=== PATIENT | female | born 1995 | race African-American/Black ===

== ENCOUNTER 2022-10-03 20:55 | Emergency (ER) | payer BC, SELFPAY ==
[2022-10-03 20:59] VITALS: BP 121/83; PULSE 86; RESP 16; TEMP 36.8; O2SAT 99; BMI 29.1
[2022-10-03 21:18] LABS: MANUAL DIFF FLAG NO
[2022-10-03 21:31] LABS: Basophils Percent Auto 0.5 % (0-2); Eosinophils Absolute Auto 0.1 X10*3/uL (0.0-0.4); Eosinophils Percent Auto 2.1 % (0-4); Hematocrit 41.2 % (37.0-47.0); Hemoglobin 13.5 g/dl (12.0-16.0); Imm Gran Abs Auto 0.02 X10*3/uL (0.00-0.03); Imm Gran Pct Auto 0.3 % (0.0-0.4); Lymphocytes Absolute Auto 3.1 X10*3/uL (1.2-4.9); Lymphocytes Percent Auto 49.3 % (20-40); Mean Corpuscular HGB Conc 32.8 g/dl (31.0-35.0); Mean Corpuscular Hemoglobin 27.1 pg (27.0-33.0); Mean Corpuscular Volume 82.6 fL (80.0-98.0); Mean Platelet Volume 10.3 fL (9.4-12.3); Monocytes Absolute Auto 0.5 X10*3/uL (0.1-1.2); Monocytes Percent Auto 7.5 % (2-11); Neutrophils Absolute Auto 2.5 x10*3/uL (2.0-8.3); Neutrophils Percent Auto 40.3 % (45-73); Platelet Count 296 X10*3/uL (160-400); Red Blood Count 4.99 X10*6/uL (4.20-5.50); Red Cell Distribution Width 13.5 % (11.0-16.0); White Blood Count 6.2 X10*3/uL (4.8-10.8)
[2022-10-03 21:33] LABS: Anion Gap 12 (12-20); Blood Urea Nitrogen 9 mg/dL (9-16); Calcium 9.1 mg/dL (8.4-10.2); Carbon Dioxide 24 mmol/L (22-29); Chloride 106 mmol/L (96-108); Creatinine Clr Calc Pharmacy 71.6; Estimated Glomerular Filt Rate 52; Glucose Random 84 mg/dL (60-115); Potassium 4.3 mmol/L (3.3-5.1); Sodium 138 mmol/L (135-145)
--- NOTE | 2022-10-04 00:33 | ED_ITS ---
HPI - Abdominal Pain General Chief Complaint: Abdominal Pain Stated Complaint: diarrhea, blood in stool, abd pain Time Seen by Provider: 10/04/22 00:25 Source: patient Mode of arrival: ambulatory Limitations: no limitations History of Present Illness HPI narrative: Patient was healthy been having diarrhea since 08/19, 5-6 times a day no fever, no chills no recent travel so antibiotic use since sometime patient has small amount of bright blood along with mucus. Diffuse abdominal cramping. Other family member were sick initially but all of them have improved except her Related Data Previous Rx's Medication Instructions Recorded ciprofloxacin HCl 500 mg tablet 500 mg PO BID #14 tabs 10/04/22 (Cipro) loperamide 2 mg tablet (Imodium 2 mg PO Q6H PRN loose stool #14 10/04/22 A-D) tabs metronidazole 500 mg tablet 500 mg PO Q8H 7 days #21 tabs 10/04/22 Allergies Allergy/AdvReac Type Severity Reaction Status Date / Time peanut Allergy Anaphylaxis Verified 10/03/22 21:03 Review of Systems Review of Systems Yes all other systems are reviewed and are negative [facility] Social History Social History Smoked in Last 30 Days: No Use of substances other than those prescribed or required for medical reasons: No Advance Directives: No Advance Directives Information Provided: Yes Physical Exam ED Vital Signs: Vital Signs - 24 hr 10/03/22 20:59 Temperature 98.2 F Pulse Rate 86 Respiratory Rate 16 Blood Pressure 121/83 Pulse Oximetry 99 Oxygen Delivery Method Room Air BMI result Body Mass Index 29.1 Appearance: Alert. Oriented X3. No acute distress. Eyes: No pallor or icterus ENT: Pharynx normal. Oral Mucosa moist Neck: Normal inspection. Neck supple. CVS: Normal heart rate and rhythm. Pulses normal. Respiratory: No respiratory distress. Equal air entry bilateral, no wheezing/rales/rhonchi Abdomen: Soft and nontender. Bowel sounds are present, no mass palpable, Skin: Skin warm and dry. Normal skin color. Normal skin turgor. Extremities: No lower extremity edema. No calf tenderness Neuro: Oriented X 3. No motor deficit. Medical Decision Making Medical Decision Making MDM Narrative: Patient chronic gastroenteritis etiology not very clear will give a course of Flagyl and Cipro. Lab Data MDM Lab Attestation statement: I reviewed the patient's lab results. 10/03/22 21:15 10/03/22 21:15 Labs: Lab Results 10/03/22 10/03/22 Range/Units 21:15 21:15 WBC 6.2 (4.8-10.8) X10*3/uL RBC 4.99 (4.20-5.50) X10*6/uL Hgb 13.5 (12.0-16.0) g/dl Hct 41.2 (37.0-47.0) % MCV 82.6 (80.0-98.0) fL MCH 27.1 (27.0-33.0) pg MCHC 32.8 (31.0-35.0) g/dl RDW 13.5 (11.0-16.0) % Plt Count 296 (160-400) X10*3/uL MPV 10.3 (9.4-12.3) fL Immature Gran % (Auto) 0.3 (0.0-0.4) % Neut % (Auto) 40.3 L (45-73) % Lymph % (Auto) 49.3 H (20-40) % [place] % (Auto) 7.5 (2-11) % Eos % (Auto) 2.1 (0-4) % Baso % (Auto) 0.5 (0-2) % Lymph # (Auto) 3.1 (1.2-4.9) X10*3/uL [place] # (Auto) 0.5 (0.1-1.2) X10*3/uL Eos # (Auto) 0.1 (0.0-0.4) X10*3/uL Baso # (Auto) 0.0 (0.0-0.2) X10*3/uL Abs Immat Gran (auto) 0.02 (0.00-0.03) X10*3/uL Absolute Neuts (auto) 2.5 (2.0-8.3) x10*3/uL Absolute Nucleated RBC 0.000 (0.0-0.012) X10*3/uL Nucleated RBC % (auto) 0.0 (0.0-0.2) /100WBC Sodium 138 (135-145) mmol/L Potassium 4.3 (3.3-5.1) mmol/L Chloride 106 (96-108) mmol/L Carbon Dioxide 24 (22-29) mmol/L Anion Gap 12 (12-20) BUN 9 (9-16) mg/dL Creatinine 1.25 (0.5-1.4) mg/dL Estim Creat Clear Calc 71.6 Estimated GFR 52 Random Glucose 84 (60-115) mg/dL Calcium 9.1 (8.4-10.2) mg/dL Discharge Plan Discharge Clinical Impression: Gastroenteritis Patient Disposition: Home, Self-Care Instructions: Gastroenteritis (ED) Additional Instructions: Drink plenty of fluids Take Imodium 1 tablet 2- 3 times a day for severe diarrhea Antibiotic as prescribed Follow with PCP as needed Prescriptions: New loperamide [Imodium A-D] 2 mg tablet 2 mg PO Q6H PRN (Reason: loose stool) Qty: 14 0RF metronidazole 500 mg tablet 500 mg PO Q8H 7 Days Qty: 21 0RF ciprofloxacin HCl [Cipro] 500 mg tablet 500 mg PO BID Qty: 14 0RF
[2022-10-04 00:50] VITALS: BP 126/84; PULSE 81; RESP 16; TEMP 36.2; O2SAT 96
[2022-10-04] MEDS: metroNIDAZOLE 500 MG TABLET PO (01:03)
[2022-10-04] MEDS: levoFLOXacin 500 MG TABLET PO (01:03)
[2022-10-04] MEDS: Loperamide HCl 2 MG CAPSULE PO (01:04)
--- NOTE | 2022-10-04 02:54 | PC.NURSE ---
pt reports feeling a bit better, reviewed medication and discharge instructions. Pt verbalized understanding. No sign of distress at this charge.
== END 2022-10-04 02:55 | disposition home or self-care (01) ==
PROVIDERS: Emergency Provider Internal Medicine
DX: K52.9 Noninfective gastroenteritis and colitis, unspecified (principal); R10.9 Unspecified abdominal pain
CPT/HCPCS: 36415; 80048; 85025; 99283; 99284

== ENCOUNTER 2023-04-12 16:08 | Emergency (ER) | payer BC, SELFPAY ==
--- NOTE | ~2023-04-12 | XR_ITS ---
EXAMINATION: XR CHEST CLINICAL INFORMATION: Cough. Shortness of breath. COMPARISON: None available. TECHNIQUE: 2 views of the chest were obtained. FINDINGS: The cardiomediastinal silhouette is normal. There is no focal lung consolidation or pleural effusion. There is mild curvature of the thoracic spine convex to the left. The soft tissues are unremarkable. XR/XR chest 2V IMPRESSION: No active cardiopulmonary disease.
[2023-04-12 16:22] VITALS: BP 133/92; PULSE 92; RESP 18; TEMP 37.1; O2SAT 98; BMI 28.0
--- NOTE | 2023-04-12 16:49 | ED.ASTHMA ---
HPI - Asthma General Chief Complaint: Asthma Stated Complaint: diff. breathing,hx asthma Time Seen by Provider: 04/12/23 16:24 Source: patient, EMS and RN notes reviewed Mode of arrival: EMS Limitations: no limitations History of Present Illness HPI Narrative: Patient is a 27-year-old female with history of asthma presenting to the emergency department with complaint of cough and shortness of breath since Sunday. Patient reports that she has been attempting to have her Symbicort and ProAir inhalers refilled since that time but her PCP office has not sent new prescriptions to the pharmacy. She denies fevers. Denies history of previous intubations. Denies nasal congestion, sore throat, ear pain. Denies chest pain. Reports that it is she was managing her symptoms with her albuterol inhaler after her Symbicort ran out but has since run out of the ProAir as well. Patient arrived on O2 via nasal cannula from EMS. complaint: wheezing Onset (ago): day(s) Severity: severe and similar to prior Context: ran out of meds Associated symptoms: dry cough Asthma History: childhood onset Treatments Prior to Arrival: inhaled bronchodilator, inhaled steroid and oxygen Related Data Previous Rx's Medication Instructions Recorded ciprofloxacin HCl 500 mg tablet 500 mg PO BID #14 tabs 10/04/22 (Cipro) loperamide 2 mg tablet (Imodium 2 mg PO Q6H PRN loose stool #14 10/04/22 A-D) tabs metronidazole 500 mg tablet 500 mg PO Q8H 7 days #21 tabs 10/04/22 albuterol sulfate 90 mcg/actuation 2 puff inhalation Q4-6H PRN 04/12/23 aerosol inhaler shortness of breath or wheezing #6.7 grams budesonide-formoterol HFA 80 2 puff inhalation BID #10.2 grams 04/12/23 mcg-4.5 mcg/actuation aerosol inhaler (Symbicort) Allergies Allergy/AdvReac Type Severity Reaction Status Date / Time peanut Allergy Anaphylaxis Verified 10/03/22 21:03 Review of Systems Review of Systems: As per HPI. Yes all other systems are reviewed and are negative Constitutional: Constitutional: Reports as per HPI PMFSH Social History Social History Advance Directives: No Advance Directives Information Provided: Yes Physical Exam Vital Signs: Vital Signs: Last Vital Signs Temp 98.7 F 04/12/23 16:22 Pulse 92 04/12/23 16:22 Resp 18 04/12/23 16:22 BP 133/92 H 04/12/23 16:22 Pulse Ox 98 04/12/23 16:22 O2 Del Method Nasal Cannula 04/12/23 16:22 Oxygen Flow Rate 2 04/12/23 16:22 BMI result Body Mass Index 28.0 Vital signs have been reviewed and appear to be correct. Blood pressure mildly elevated. Heart rate normal. Respiratory rate normal. Temperature normal. Oxygen saturation normal on O2 @ 2lpm via NC. Const: General: cooperative, healthy appearing and no acute distress Orientation/consciousness: oriented to person, oriented to place, oriented to time and patient oriented x3 Limitations: no limitations HEENT: Head: Yes normocephalic and Yes atraumatic Ears: external ears normal General nose exam: Normal external nose present Face and sinus: Yes face symmetric Mouth: oropharynx normal and moist mucous membranes Throat: Yes uvula midline Eyes: Pupils: Equal, round and reactive pupils present Neck: Neck: Yes normal visual inspection and Yes supple Resp: Effort & Inspection: normal respiratory effort and able to speak in complete sentences Auscultation: wheezes expiratory wheezes, inspiratory wheezes and throughout Cardio: Rate: regular rate Rhythm: regular rhythm Heart sounds: S1 normal heart sound present and S2 normal heart sound present GI: Palpation (GI): Soft to palpation and nontender Auscultation: normoactive bowel sounds : General: Yes no CVA tenderness Back/Spine/Pelvis: Back: no CVA tenderness Skin: General skin exam: elasticity normal and turgor normal Neuro: General: oriented to person, oriented to place, oriented to time, patient oriented x3, moves all extremities, no focal motor deficits and CN's II-XI intact bilaterally Cranial nerves: Yes Equal, round and reactive pupils present Cognition (Neuro): normal cognition Extrem: General: Yes full ROM, Yes no pedal edema and Yes no calf tenderness Psych: Mental Status: mental status grossly normal Affect: normal affect Thought process: Normal thought process present Medical Decision Making Medical Decision Making MDM Narrative: Patient is a 27-year-old female with history of asthma presenting to the emergency department with complaint of cough and shortness of breath since Saturday. On exam patient is awake, A+Ox3, VS WNL, afebrile, normal neurological exam without focal deficits, physical exam findings as above. Given reported symptoms and physical exam findings, initial differential includes asthma exacerbation, bronchitis, pneumonia, viral illness, COVID, influenza. X-ray notable for no acute abnormality. My interpretation is in agreement with the radiologist's interpretation. ED bronchdilator protocol ordered, patient reports increased symptoms after treatment and oxygen saturation improved. Swabs for COVID and influenza both negative. Patient updated on results. Will prescribe Symbicort and ProAir inhalers. Instructed patient follow-up with primary care provider. Return precautions discussed bedside. Patient verbalized understanding of and agreement with plan. Differential Diagnosis Differential Diagnoses: The differential diagnosis associated with the presentation includes As per [facility] Admission/Observation Consideration of admission/observation: Escalation of care including admission/observation considered Lab Data [facility] Lab Attestation statement: I reviewed the patient's lab results. As per [facility]. Labs: Lab Results 04/12/23 Range/Units 18:13 COVID-19 (NINFA) Negative (Negative) COVID-19 Clin Com See Note Influenza Type A (MILAN) Negative (Negative) Influenza Type B (MILAN) Negative (Negative) Influenza A & B Note See Note Independent Interpretation I performed an independent interpretation of an: Plain X-Ray Interpretation: No acute abnormality on chest x-ray Radiology Impression Discussion of test interpretation with radiology: I have reviewed the radiologist's reading. Radiologist Impression: XR/XR chest 2V IMPRESSION: No active cardiopulmonary disease. External Record Review External record reviewed: Inpatient record, Office record and Outpatient record Prescription Management I considered prescription management with: Other (Symbicort, ProAir) Chronic Conditions Patient?s care impacted by: Other (asthma) Discharge Plan Discharge Clinical Impression: Asthma with acute exacerbation Qualifiers: Asthma severity: unspecified severity Asthma persistence: unspecified Qualified Code(s): J45.901 - Unspecified asthma with (acute) exacerbation Patient Disposition: Home, Self-Care Instructions: Asthma (DC) Additional Instructions: You were evaluated in the emergency department today for shortness of breath. You were given a breathing treatment which improved your symptoms. Your chest x-ray did not show any evidence of pneumonia. You are being prescribed new ProAir and Symbicort inhalers. Please follow up with your primary care provider this week. She in the emergency department if you experience worsening shortness of breath, chest pain, fever 100.4? F or greater, or any other concerning symptoms. Prescriptions: New budesonide-formoterol [Symbicort] 80-4.5 mcg/actuation HFA aerosol inhaler 2 puff inhalation BID Qty: 10.2 0RF albuterol sulfate 90 mcg/actuation HFA aerosol inhaler 2 puff inhalation Q4-6H PRN (Reason: shortness of breath or wheezing) Qty: 6.7 0RF No Action loperamide [Imodium A-D] 2 mg tablet 2 mg PO Q6H PRN (Reason: loose stool) Qty: 14 0RF metronidazole 500 mg tablet 500 mg PO Q8H 7 Days Qty: 21 0RF ciprofloxacin HCl [Cipro] 500 mg tablet 500 mg PO BID Qty: 14 0RF
[2023-04-12 18:32] LABS: COVID-19 Test Negative (Negative); IDNOW Serial# 08D9AD1C
[2023-04-12 18:36] LABS: IDNOW Serial# BCCEAD1C; Influenza A Negative (Negative); Influenza B2 Negative (Negative)
== END 2023-04-12 19:23 | disposition home or self-care (01) ==
PROVIDERS: Registered Nurse Emergency; Emergency Provider Student in an Organized Health Care Education/Training Program
DX: J45.901 Unspecified asthma with (acute) exacerbation (principal); R06.02 Shortness of breath; Z11.52 Encounter for screening for COVID-19
CPT/HCPCS: 71046; 87502; 87635; 99282; 99283